=== PATIENT | female | born 1935 | race Caucasian/White ===

== ENCOUNTER 2022-04-23 11:12 | Outpatient (CLI) | payer MEDICARE, SELFPAY ==
[2022-04-23 22:58] LABS: Vitamin B12* 354 pg/mL (243-894)
== END 2022-04-23 11:13 | disposition home or self-care (01) ==
LOC: LKVREF 11:14
PROVIDERS: PCP Emergency Medicine; Visit Provider Physician Assistant Medical
DX: E53.8 Deficiency of other specified B group vitamins (principal)
CPT/HCPCS: 82607

== ENCOUNTER 2022-12-10 16:33 | Outpatient (CLI) | payer MEDICARE, SELFPAY | END 2022-12-10 16:34 | disposition home or self-care (01) | LOC: LKVREF 16:34 | PROVIDERS: PCP Emergency Medicine; Visit Provider Emergency Medicine | DX: E53.8 Deficiency of other specified B group vitamins (principal); I10 Essential (primary) hypertension; I48.91 Unspecified atrial fibrillation | CPT/HCPCS: 82607 ==

== ENCOUNTER 2023-03-04 13:40 | Outpatient (CLI) | payer MEDICARE, SELFPAY ==
--- NOTE | 2023-03-04 14:00 | CRLHL7_ITS ---
For Patients: As a result of the Century Cures Act, medical imaging exams and procedure reports are released immediately into your electronic medical record. You may view this report before your referring provider. If you have questions, please contact your health care provider. BILATERAL SCREENING MAMMOGRAM WITH COMPUTER-AIDED DETECTION AND TOMOSYNTHESIS TECHNIQUE: CC and MLO views were obtained. These mammographic images have been obtained using full-field digital technique. These mammographic images were interpreted with the benefit of computer-aided detection. Breast Tomosynthesis was used in this interpretation. COMPARISON FILM: 03/04/20, 02/13/19, 02/10/18. FINDINGS: The breasts are heterogeneously dense, which may obscure small masses IMPRESSION: There is no radiographic evidence for malignancy. ASSESSMENT: BI-RADS Category 1: Negative RECOMMENDATION: Routine screening mammogram in 1 year. A lay language report of this examination will be provided to the patient. Philip Villafana M.D. Diagnostic Radiologist [email or web address] / be/Dictated by: Philip Villafana MD @ 03/05/2023 8:15:00 AM (Electronically Signed)
--- NOTE | 2023-03-04 14:30 | CRLHL7_ITS ---
For Patients: As a result of the Century Cures Act, medical imaging exams and procedure reports are released immediately into your electronic medical record. You may view this report before your referring provider. If you have questions, please contact your health care provider. DXA BONE MINERAL DENSITY STUDY Current height (in): 62.0. Weight (lb): 110.0. Menopause age: 54. Ethnicity: White. Reason for exam: Distant history of osteoporosis. History of breast cancer. 1. Have you had a previous hip or vertebral fracture? No. 2. Have you had any fractures during your adult life which did not result from significant trauma (e.g., auto accident)? No. 3. Did either of your parents have a hip fracture? No. 4. Do you smoke? No. 5. Have you ever taken Glucocorticoids? No. 6. Do you have rheumatoid arthritis? Yes. 7. Do you have secondary osteoporosis? No. 8. Do you drink 3 or more alcoholic drinks per day? No. 9. Are you being treated for osteoporosis? No. 10. Have you ever taken any of the following medications: Actonel, Evista, Fosamax, Miacalcin, Reclast, Boniva, Forteo, HRT (i.e. estrogen/hormone therapy), Protelos, Prolia, Vitamin D, Calcium, other ??? please specify. ANSWER: Yes, calcium, vitamin D. 11. Do you have any of the following medical conditions: Anorexia or bulimia, asthma or emphysema, end stage renal disease, hyperparathyroidism, any seizure disorders, cancer, inflammatory bowel diseases, hysterectomy, other ??? please specify. ANSWER: Yes, cancer. 12. What was your maximum height (inches)? 64. 13. Do you perform weight bearing exercise regularly? No. 14. Do you regularly consume dairy products? Yes. 15. Do you drink caffeinated beverages? No. 16. At what age did your period start? 14. 17. Are you premenopausal? No. 18. How many full term pregnancies have you had? 2. 19. Have you ever missed your period for more than 6 months in a row (not including or menopause)? No. TECHNIQUE: Bone mineral density study was performed using the [employer]. FINDINGS: The results of the study expressed as bone mineral density (BMD) are as follows: Lumbar spine L1 to L3: BMD: 0.873 g/cm2. T-score: -1.3. Z-score: 1.5. Neck Left: BMD: 0.617 g/cm2. T-score: -2.1. Z-score: 0.4. Right: BMD: 0.638 g/cm2. T-score: -1.9. Z-score: 0.6. Total Left: BMD: 0.817 g/cm2. T-score: -1.0. Z-score: 1.3. Right: BMD: 0.826 g/cm2. T-score: -1.0. Z-score: 1.4. IMPRESSION: Osteopenia. *Comparison exams done prior to 01/2020 were performed on different unit, [employer]. COMPARISON: Compared with scan of 05/30/2020, the bone mineral density has decreased by 3.7 percent at the spine and increased by 9.0 percent at the hip. FRAX 10-year Fracture Risk Major Osteoporotic Fracture: 17 percent Hip Fracture: 6.2 percent Reported Risk Factors: [place] () Neck BMD = 0.617, BMI = 20.1 Philip Villafana M.D. Diagnostic Radiologist [email or web address] Transcribed: 10:05 [address] DW/Dictated by: Philip Villafana MD @ 03/05/2023 9:21:00 AM (Electronically Signed)
== END 2023-03-04 13:41 | disposition home or self-care (01) ==
LOC: MAMMO 13:41
PROVIDERS: PCP Emergency Medicine; Visit Provider Emergency Medicine
DX: Z12.31 Encounter for screening mammogram for malignant neoplasm of breast (principal); R92.2 Inconclusive mammogram; M81.0 Age-related osteoporosis without current pathological fracture; M85.89 Other specified disorders of bone density and structure, multiple sites; Z85.3 Personal history of malignant neoplasm of breast
CPT/HCPCS: 77063; 77067; 77080

== ENCOUNTER 2023-05-12 13:24 | Outpatient (CLI) | payer MEDICARE, SELFPAY | END 2023-05-12 13:25 | disposition home or self-care (01) | LOC: NFLDREF 05-13 08:30 | PROVIDERS: PCP Emergency Medicine; Referring Provider Emergency Medicine; Visit Provider Emergency Medicine | DX: E03.9 Hypothyroidism, unspecified (principal); E53.8 Deficiency of other specified B group vitamins | CPT/HCPCS: 82607; 84443 ==

== ENCOUNTER 2023-12-02 15:21 | Outpatient (CLI) | payer MEDICARE, SELFPAY | END 2023-12-02 15:22 | disposition home or self-care (01) | PROVIDERS: PCP Emergency Medicine; Visit Provider Nurse Practitioner Family | DX: I10 Essential (primary) hypertension (principal); E78.2 Mixed hyperlipidemia; E53.8 Deficiency of other specified B group vitamins; F03.90 Unspecified dementia, unspecified severity, without behavioral disturbance, psychotic disturbance, mood disturbance, and anxiety | CPT/HCPCS: 80053; 80061; 82306; 82607; 84443 ==

== ENCOUNTER 2024-04-06 22:49 | Outpatient (REF) | payer MEDICARE, SELFPAY | END 2024-04-06 22:50 | disposition home or self-care (01) | LOC: NPINS 22:49 | PROVIDERS: PCP Emergency Medicine | DX: I48.0 Paroxysmal atrial fibrillation (principal) | CPT/HCPCS: 85018 ==

== ENCOUNTER 2024-05-11 13:51 | Outpatient (CLI) | payer MEDICARE, SELFPAY ==
--- NOTE | 2024-05-11 14:00 | CRLHL7_ITS ---
For Patients: As a result of the Century Cures Act, medical imaging exams and procedure reports are released immediately into your electronic medical record. You may view this report before your referring provider. If you have questions, please contact your health care provider. LEFT SCREENING MAMMOGRAM WITH COMPUTER-AIDED DETECTION AND TOMOSYNTHESIS TECHNIQUE: CC and MLO views were obtained. These mammographic images have been obtained using full-field digital technique. These mammographic images were interpreted with the benefit of computer-aided detection. Breast tomosynthesis was used in this interpretation. COMPARISON FILM: 03/04/2023, 03/04/2020, 02/13/2019 FINDINGS: There are scattered areas of fibroglandular density. IMPRESSION: There is no radiographic evidence for malignancy. ASSESSMENT: BI-RADS Category 2: Benign RECOMMENDATION: Routine screening mammogram in 1 year. A lay language report of this examination will be provided to the patient. PHILIP SINGER M.D. Diagnostic Radiologist [email or web address] Transcribed: 12:[address]/Dictated by: Philip Singer MD @ 05/15/2024 10:27:00 AM (Electronically Signed)
== END 2024-05-11 13:52 | disposition home or self-care (01) ==
LOC: MAMMO 13:52
PROVIDERS: PCP Emergency Medicine; Visit Provider Emergency Medicine
DX: Z12.31 Encounter for screening mammogram for malignant neoplasm of breast (principal)
CPT/HCPCS: 77063; 77067

== ENCOUNTER 2024-12-07 14:42 | Outpatient (CLI) | payer MEDICARE, SELFPAY | END 2024-12-07 14:43 | disposition home or self-care (01) | PROVIDERS: PCP Emergency Medicine; Visit Provider Emergency Medicine | DX: E53.8 Deficiency of other specified B group vitamins (principal); M81.0 Age-related osteoporosis without current pathological fracture; I10 Essential (primary) hypertension; E03.9 Hypothyroidism, unspecified; I67.89 Other cerebrovascular disease | CPT/HCPCS: 80048; 80061; 82306; 82607; 84443 ==

== ENCOUNTER 2025-05-31 14:17 | Outpatient (CLI) | payer MEDICARE, SELFPAY ==
--- NOTE | 2025-05-31 14:30 | CRLHL7_ITS ---
For Patients: As a result of the Century Cures Act, medical imaging exams and procedure reports are released immediately into your electronic medical record. You may view this report before your referring provider. If you have questions, please contact your health care provider. XR DXA Bone Mineral Density (BMD) Reason for exam: Osteopenia. Current height (in): 62. Weight (lb): 110. Menopause age: 54. Ethnicity: White. 1. Have you had a previous hip or vertebral fracture? No. 2. Have you had any fractures during your adult life which did not result from significant trauma (e.g., auto accident)? No. 3. Did either of your parents have a hip fracture? No. 4. Do you smoke? No. 5. Have you ever taken Glucocorticoids? No. 6. Do you have rheumatoid arthritis? Yes. 7. Do you have secondary osteoporosis? No. 8. Do you drink 3 or more alcoholic drinks per day? No. 9. Are you being treated for osteoporosis? No. 10. Have you ever taken any of the following medications: Actonel, Evista, Fosamax, Miacalcin, Reclast, Boniva, Forteo, HRT (i.e. estrogen/hormone therapy), Protelos, Prolia, Vitamin D, Calcium, other ??? please specify. ANSWER: Yes, vitamin D, calcium. 11. Do you have any of the following medical conditions: Anorexia or bulimia, asthma or emphysema, end stage renal disease, hyperparathyroidism, any seizure disorders, cancer, inflammatory bowel diseases, hysterectomy, other ??? please specify. ANSWER: Yes, cancer, hysterectomy. 12. What was your maximum height (inches)? 64. 13. Do you perform weight bearing exercise regularly? No. 14. Do you regularly consume dairy products? Yes. 15. Do you drink caffeinated beverages? No. If female: 16. At what age did your period start? 14. 17. Are you premenopausal? No. 18. How many full term pregnancies have you had? 2. 19. Have you ever missed your period for more than 6 months in a row (not including or menopause)? No. TECHNIQUE: Bone mineral density study was performed using the [employer]. FINDINGS: The results of the study expressed as bone mineral density (BMD) are as follows: Lumbar spine L1 to L3: BMD: 0.903 g/cm2. T-score: -1.0. Z-score: 1.7. Neck Left: BMD: 0.629 g/cm2. T-score: -2.0. Z-score: 0.5. Right: BMD: 0.599 g/cm2. T-score: -2.2. Z-score: 0.3. Total Left: BMD: 0.816 g/cm2. T-score: -1.0. Z-score: 1.3. Right: BMD: 0.731 g/cm2. T-score: -1.7. Z-score: 0.6. IMPRESSION: Osteopenia. COMPARISON: Compared with scan of 03/04/2023, the bone mineral density has increased by 3.4 percent at the spine and decreased by 5.9 percent at the hip. Compared with scan of 05/30/2020, the bone mineral density has decreased by 3.7 percent at the spine and increased by 9.0 percent at the hip. FRAX 10-year Fracture Risk Major Osteoporotic Fracture: 16 percent Hip Fracture: 6.5 percent Reported Risk Factors: [place] () Neck BMD=0.599, BMI=20.1, rheumatoid arthritis Philip Villafana M.D. Diagnostic Radiologist [email or web address] bM/Dictated by: Philip Villafana MD @ 06/01/2025 8:27:00 AM (Electronically Signed)
== END 2025-05-31 14:18 | disposition home or self-care (01) ==
LOC: RAD 14:19
PROVIDERS: PCP Nurse Practitioner Family; Visit Provider Nurse Practitioner Family
DX: M81.0 Age-related osteoporosis without current pathological fracture (principal); M85.89 Other specified disorders of bone density and structure, multiple sites
CPT/HCPCS: 77080